=== PATIENT | male | born 1990 | race Caucasian/White ===

== ENCOUNTER 2016-07-22 14:48 | Emergency (ER) | payer BC ==
[2016-07-22 14:54] VITALS: BP 142/88; PULSE 115; RESP 18; TEMP 98.2
--- NOTE | 2016-07-22 15:56 | XR ---
EXAMINATION TYPE: XR foot complete LT DATE OF EXAM: 07/22/2016 3:52 PM CLINICAL HISTORY: pain TECHNIQUE: Frontal, lateral and oblique images of the left foot are obtained. COMPARISON: None. FINDINGS: There is no acute fracture/dislocation evident. The joint spaces appear within normal phipps its. The overlying soft tissue appears unremarkable. IMPRESSION: There is no acute fracture or dislocation. ICD 10 NO FRACTURE, INITIAL EVALUATION
--- NOTE | 2016-07-22 16:40 | ED ---
Lower Extremity Injury HPI - General Chief Complaint: Extremity Injury, Lower Stated Complaint: Foot Pain Time Seen by Provider: 07/22/16 15:29 Source: patient Mode of arrival: wheelchair Limitations: no limitations - History of Present Illness Initial Comments: Patient is a 26-year-old white male presenting to the emergency department with complaints of dorsal left foot pain. Patient states that injury at 7 AM this morning. Patient states that he tripped over a door step. Patient describes pain as sharp, currently rated 0 out of 10 at rest, 6 out of 10 with activity, patient was able to ambulate after the injury and in the emergency department. Patient denies numbness or tingling. Patient denies previous injury or surgery to left lower extremity. Patient denies treatment prior to arrival. MD Complaint: other (Left foot injury) Place: home Severity: moderate Severity scale (1-10): 6 Improves With: rest Worsens With: weight bearing, movement, palpation Context: fall Associated Symptoms: swelling, ambulatory - Related Data Allergies Allergy/AdvReac Type Severity Reaction Status Date / Time azithromycin [From Zithromax] Allergy Rash/Hives Verified 07/22/16 14:50 Review of Systems ROS Statement: Those systems with pertinent positive or pertinent negative responses have been documented in the HPI. ROS Other: All systems not noted in ROS Statement are negative. Past Medical History Past Medical History: No Reported History, GERD/Reflux History of Any Multi-Drug Resistant Organisms: None Reported Past Surgical History: Orthopedic Surgery, Tonsillectomy Additional Past Surgical History / Comment(s): tubes in ear, right hand Past Psychological History: No Psychological Hx Reported Smoking Status: Current every day smoker Past Alcohol Use History: Occasional Past Drug Use History: None Reported General Exam Limitations: no limitations General appearance: alert, in no apparent distress Head exam: Present: atraumatic, normocephalic, normal inspection Eye exam: Present: normal appearance Respiratory exam: Present: normal lung sounds bilaterally. Absent: wheezes, rales, rhonchi Cardiovascular Exam: Present: normal rhythm, tachycardia, normal heart sounds GI/Abdominal exam: Present: soft, normal bowel sounds. Absent: tenderness Left Lower Leg exam: Present: normal inspection, full ROM. Absent: tenderness, swelling Ankle exam: Present: normal inspection, full ROM. Absent: tenderness, swelling Foot/Toe exam: Present: full ROM, tenderness (Tenderness to the dorsal aspect of left midfoot), swelling (Mild swelling to left foot). Absent: ecchymosis, deformity, calcaneal tenderness, tenderness at base of 5th metatarsal Neurovascular tendon exam: Present: no vascular compromise. Absent: pulse deficit, motor deficit, sensory deficit, tendon deficit, extremity cold to touch , decreased fine/light touch, foot drop, significant pain with passive ROM of distal joint Gait: observed and limited by pain Neurological exam: Present: alert, oriented X3, other (No focal deficits) Psychiatric exam: Present: normal affect, normal mood Skin exam: Present: warm, dry, intact, normal color Course Vital Signs 07/22/16 14:50 Temperature 98.2 F Pulse Rate 115 H Respiratory 18 Rate Blood Pressure 142/88 O2 Sat by Pulse 96 Oximetry Medical Decision Making - Medical Decision Making Left foot sprain. Left foot x-ray negative for fracture. Lucien wrap applied to left foot. Patient instructed to follow-up with orthopedic pediatric surgeon as needed. Discharge instructions and return parameters reviewed. - Radiology Data Radiology results: report reviewed X-ray left foot: No acute fracture or dislocation evident joint spaces appear within normal limits. Overlying soft tissue appears unremarkable Disposition Clinical Impression: Sprain of left foot Disposition: HOME SELF-CARE Condition: Good Instructions: Foot Sprain (ED) Additional Instructions: Avoid activities that cause pain. Apply ice 20 minutes 4 times a day usually for 2-3 days. Use Lucien bandage to support and limit swelling. Keep foot elevated as much as possible for 24-48 hours. Continue Motrin 800 every 8 hours for 48 hours. Follow-up with orthopedic surgeon as directed. Please return to the emergency department if symptoms do not improve or get worse. Referrals: Navarro Alvarado DO [Primary Care Provider] - 1-2 days Jean Carlos Dukes MD [REFERRING] - 1-2 days Time of Disposition: 16:39
== END 2016-07-22 16:45 | disposition home or self-care (01) ==
LOC: EC 14:48
DX: S93.602A Unspecified sprain of left foot, initial encounter (principal); W22.8XXA Striking against or struck by other objects, initial encounter; Z88.1 Allergy status to other antibiotic agents; F17.200 Nicotine dependence, unspecified, uncomplicated
CPT/HCPCS: 99284

== ENCOUNTER 2021-01-03 10:29 | Day surgery (SDC) | payer BC ==
[2020-12-29 13:50] VITALS: BMI 31.7
[~2021-01-03 10:29] MED LIST: LACTATED RINGERS 1,000 ML IV SCH; LIDOCAINE 1% (10MG/ML) FOR IV START INTRADERMA PRN
[2021-01-03 10:49] VITALS: RESP 16; TEMP 97.3
[2021-01-03] MEDS ORDERED: MIDAZOLAM 2 MG/2 ML VIAL ONE (11:05)
[2021-01-03] MEDS ORDERED: KETAMINE 10 MG/ML 20 ML VIAL ONE (11:05)
[2021-01-03] MEDS ORDERED: LIDOCAINE 1% INJ 10MG/ML (20 ML MDV) ONE (11:05)
[2021-01-03] MEDS ORDERED: PROPOFOL 10 MG/ML 20 ML VIAL IV ONE (11:05)
--- NOTE | 2021-01-03 11:09 | P.GSHP ---
History of Present Illness H&P Date: 01/03/21 Chief Complaint: GERD Patient here today for upper endoscopy. Patient with history of reflux. Takes Protonix most days. Patient has good control of his symptoms. No dysphagia recently. History of previous mild gastritis and small hiatal hernia. Past Medical History Past Medical History: No Reported History, GERD/Reflux History of Any Multi-Drug Resistant Organisms: None Reported Past Surgical History: Orthopedic Surgery, Tonsillectomy Additional Past Surgical History / Comment(s): tubes in ear, right hand Past Anesthesia/Blood Transfusion Reactions: No Reported Reaction Smoking Status: Never smoker - Past Family History Mother Family Medical History: No Reported History Medications and Allergies Home Medications Medication Instructions Recorded Confirmed Type No Known Home Medications 01/03/21 01/03/21 History Allergies Allergy/AdvReac Type Severity Reaction Status Date / Time azithromycin [From Zithromax] Allergy Rash/Hives Verified 01/03/21 10:44 Surgical - Exam Vital Signs Temp Pulse Resp BP Pulse Ox 97.3 F L 73 16 142/91 98 01/03/21 10:45 01/03/21 10:45 01/03/21 10:45 01/03/21 10:45 01/03/21 10:45 Physical exam: General: Well-developed, well-nourished HEENT: Normocephalic, sclerae nonicteric Abdomen: Nontender, nondistended Extremities: No edema Neuro: Alert and oriented Assessment and Plan (1) GERD (gastroesophageal reflux disease) Narrative/Plan: Will proceed with upper endoscopy Current Visit: Yes Status: Acute Code(s): K21.9 - GASTRO-ESOPHAGEAL REFLUX DISEASE WITHOUT ESOPHAGITIS SNOMED Code(s): 431657746
--- NOTE | 2021-01-03 11:15 | P.PCN ---
Date of Procedure: 01/03/21 Procedure(s) Performed: Preoperative Dx: GERD Postoperative Dx: Mild gastritis Procedure: EGD with Bx Anesthesia: Sedation Endoscopist: Dr. Ambrocio Specimens: Antrum Endoscopic Procedure: The patient was on the endoscopy table in the left decubitus position. The Olympus gastroscope was inserted into the oropharynx and passed under direct visualization to the region of the third portion of the duodenum. From that point the scope was slowly withdrawn inspecting all surfaces carefully. There were no neoplastic inflammatory or polypoid lesions throughout the duodenum. The pylorus was widely patent. The stomach was carefully inspected. There was mild gastritis present. A biopsy of the antrum took place to rule out H. pylori. Retroflexion revealed a normal hiatus. The esophagus was then carefully examined. There were no neoplastic inflammatory or polypoid lesions throughout the visualized esophagus. The patient was then taken to the recovery room in stable condition per anesthesia guidelines. Recommendations: Resume diet. Continue intermittent or as needed antiacid therapy.
[2021-01-03 11:35] VITALS: BP 129/85; PULSE 66
== END 2021-01-03 11:56 | disposition home or self-care (01) ==
LOC: ORWHC2ENDO 10:29
PROVIDERS: ATTEND Surgery
DX: K29.50 Unspecified chronic gastritis without bleeding (principal); K21.9 Gastro-esophageal reflux disease without esophagitis; K44.9 Diaphragmatic hernia without obstruction or gangrene; F17.290 Nicotine dependence, other tobacco product, uncomplicated; Z98.890 Other specified postprocedural states; Z90.89 Acquired absence of other organs; Z79.899 Other long term (current) drug therapy; Z88.1 Allergy status to other antibiotic agents
CPT/HCPCS: 88305; 43239; J2250; J2001; J2704